=== PATIENT | female | born 1935 | race Caucasian/White ===

== ENCOUNTER 2023-08-10 08:47 | Outpatient (CLI) | payer MEDICARE, BC, SELFPAY ==
--- NOTE | 2023-08-10 09:15 | FL_ITS ---
Patient: HIMANSHU RUCKER Facility:?[facility] Patient ID:?[id number] Site Patient ID:?[id number]. Site :?[id number] Study:?XRay-Abdomen Barium swallow modified READ-08/10/2023 9:32:29 AM Ordering Physician:?ERENDIRA LEROY Final Report: INDICATION: Difficulty swallowing TECHNIQUE: Modified barium swallow. Fluoroscopic time 1 minute and 35 seconds. COMPARISON: None FINDINGS/IMPRESSION: Anatomical structures are normal. Swallowing mechanism appears within normal limits. No episodes of penetration or aspiration. No significant findings. Dictated by Kalen Bunn MD @ 08/10/2023 12:06:12 PM Signed by:?Kalen Bunn MD @08/10/2023 12:06:12 PM (Electronic Signature)
== END 2023-08-10 08:48 | disposition home or self-care (01) ==
PROVIDERS: PCP Internal Medicine; Visit Provider Nurse Practitioner Adult Health
DX: R13.10 Dysphagia, unspecified (principal)
CPT/HCPCS: 74230; 92611